=== PATIENT | female | born 1980 | race Two or more races ===

== ENCOUNTER 2017-05-31 16:48 | Emergency (ER) | payer SELFPAY ==
[~2017-05-31] VITALS: Ht 167.6 cm; Wt 63.5 kg
[2017-05-31 17:49] LABS: BILIRUBIN,URINE NEGATIVE (NEG); GLUCOSE,URINE NEGATIVE (NEG); NITRITE,URINE NEGATIVE (NEG); PH,URINE 6.5; PROTEIN,URINE NEGATIVE (NEG-TRACE)
[2017-05-31 17:57] LABS: BACTERIA,URINE 0 /HPF (0-FEW); SQUAMOUS EPITHELIAL CELL,UR MANY /LPF
[2017-05-31 18:03] LABS: BASO # 0.1 x10^3/uL (0.0-0.2); BASO % 1 % (0-3); EOS % 4 % (0-3); HEMATOCRIT 34.4 % (36.0-47.0); HEMOGLOBIN 11.6 g/dL (12.0-15.5); LYMPH # 1.8 x10^3/uL (1.0-4.8); LYMPH % 33 % (24-48); MEAN CORPUSCULAR HEMOGLOBIN 32 pg (25-35); MEAN CORPUSCULAR HGB CONC 34 g/dL (31-37); MEAN CORPUSCULAR VOLUME 94 fL (79-100); MONO % 8 % (0-9); NEUT % 54 % (31-73); PLATELET COUNT 288 x10^3/uL (140-400); RED BLOOD COUNT 3.66 x10^6/uL (3.50-5.40); RED CELL DISTRIBUTION WIDTH 13.3 % (11.5-14.5); WHITE BLOOD COUNT 5.5 x10^3/uL (4.0-11.0)
[2017-05-31 18:19] LABS: CALCIUM 9.2 mg/dL (8.5-10.1); CREATININE 0.6 mg/dL (0.6-1.0); GFR 113.1
--- NOTE | 2017-05-31 19:11 | RAD ---
OB ultrasound less than 14 weeks and transvaginal OB ultrasound HISTORY: Abdominal pain vaginal bleeding and Sonographic examination of the was performed by transabdominal and endovaginal technique. Multiple static images were obtained. OB ultrasound first trimester: The uterus appears normal. There is no gestational sac seen. OB ultrasound transvaginal: The endometrium of the uterus measures 10 mm in thickness. The right ovary appears normal with normal blood flow measures 1.1 x 2.4 x 1.1 cm. The left ovary appears normal with normal blood flow measures 1.4 x 2.7 x 1.8 cm. There is no free fluid. IMPRESSION: No sonographic evidence of . An early less than 4 weeks is possible. Miscarriage or blighted ovum is possible. Recommend correlation with serial quantitative beta-hCG. If the progresses beyond 6 weeks a repeat ultrasound is recommended in order to document an intrauterine and thereby exclude ectopic . Electronically signed by: Titus Villalobos III, MD (05/31/2017 7:06 PM) [facility]
--- NOTE | 2017-05-31 20:28 | PHYS DOC ---
Past Medical History Past Medical History: No Pertinent History Past Surgical History: No Surgical History Alcohol Use: None Drug Use: None Adult General Chief Complaint Chief Complaint: VAGINAL BLEEDING HPI HPI Patient is a 36 year old female who presents with vaginal bleeding in early . The patient is , at 10w2d by dates (LMP 03/21), reports 1 week ago she had vaginal bleeding with clots & cramping lower abdominal pain. She is concerned that she experienced miscarriage. Currently no bleeding or pain. Denies fevers/chills, nausea, vomiting, diarrhea, dysuria/hematuria, vaginal discharge. She went to a clinic this morning & was instructed to come here for further evaluation. Review of Systems Review of Systems Constitutional: Denies fever or chills HENT: Denies nasal congestion or sore throat Respiratory: Denies cough or shortness of breath Cardiovascular: Denies chest pain GI: Reports history of abdominal pain, denies nausea, vomiting : Denies dysuria or hematuria, reports history of vaginal bleeding. Musculoskeletal: Denies back pain or joint pain Integument: Denies rash or skin lesions Neurologic: Denies headache, focal weakness or sensory changes All other systems were reviewed and found to be within normal limits, except as documented in this note. Allergies Allergies Allergies Coded Allergies Type Severity Reaction Last Updated Verified No Known Drug Allergies 05/31/17 No Physical Exam Physical Exam Constitutional: Well developed, well nourished, no acute distress, non-toxic appearance. HENT: Normocephalic, atraumatic, bilateral external ears normal, oropharynx moist, nose normal. Eyes: conjunctiva normal, no discharge. Neck: supple, no stridor. Cardiovascular: RRR, no murmurs, no edema. Lungs & Thorax: LCTAB, no wheezing, no respiratory distress. Abdomen: soft, nontender, nondistended. no masses or pulsatile masses, no rebound/guarding. Skin: Warm, dry, no erythema, no rash. Back: No CVA tenderness. Extremities: No tenderness, no edema. Neurologic: Alert and oriented X 3, no focal deficits noted. Psychologic: Affect normal, judgement normal, mood normal. Current Patient Data Vital Signs Vital Signs Date Time Temp Pulse Resp B/P (MAP) Pulse Ox O2 Delivery O2 Flow Rate FiO2 05/31/17 20:57 78 20 107/54 (71) 98 Room Air 05/31/17 17:30 98.4 98.4 Lab Values Laboratory Tests Test 05/31/17 17:24 05/31/17 17:28 05/31/17 17:51 Urine Collection Type Unknown Urine Color Yellow Urine Clarity Clear Urine pH 6.5 Urine Specific [place] 1.025 Urine Protein Negative mg/dL (NEG-TRACE) Urine Glucose (UA) Negative mg/dL (NEG) Urine Ketones (Stick) Negative mg/dL (NEG) Urine Blood Small (NEG) Urine Nitrite Negative (NEG) Urine Bilirubin Negative (NEG) Urine Urobilinogen Dipstick 1.0 mg/dL (0.2 mg/dL) Urine Leukocyte Esterase Small (NEG) Urine RBC 3-5 /HPF (0-2) Urine WBC 1-4 /HPF (0-4) Urine Squamous Epithelial Cells Many /LPF Urine Amorphous Sediment Present /HPF Urine Bacteria 0 /HPF (0-FEW) Urine Mucus Marked /LPF POC Urine HCG, Qualitative Hcg positive (Negative) White Blood Count 5.5 x10^3/uL (4.0-11.0) Red Blood Count 3.66 x10^6/uL (3.50-5.40) Hemoglobin 11.6 g/dL (12.0-15.5) L Hematocrit 34.4 % (36.0-47.0) L Mean Corpuscular Volume 94 fL (79-100) Mean Corpuscular Hemoglobin 32 pg (25-35) Mean Corpuscular Hemoglobin Concent 34 g/dL (31-37) Red Cell Distribution Width 13.3 % (11.5-14.5) Platelet Count 288 x10^3/uL (140-400) Neutrophils (%) (Auto) 54 % (31-73) Lymphocytes (%) (Auto) 33 % (24-48) Monocytes (%) (Auto) 8 % (0-9) Eosinophils (%) (Auto) 4 % (0-3) H Basophils (%) (Auto) 1 % (0-3) Neutrophils # (Auto) 3.0 x10^3uL (1.8-7.7) Lymphocytes # (Auto) 1.8 x10^3/uL (1.0-4.8) Monocytes # (Auto) 0.4 x10^3/uL (0.0-1.1) Eosinophils # (Auto) 0.2 x10^3/uL (0.0-0.7) Basophils # (Auto) 0.1 x10^3/uL (0.0-0.2) Maternal Serum HCG Beta Subunit 442 mIU/mL (0-5) H Sodium Level 140 mmol/L (136-145) Potassium Level 4.0 mmol/L (3.5-5.1) Chloride Level 105 mmol/L (98-107) Carbon Dioxide Level 29 mmol/L (21-32) Anion Gap 6 (6-14) Blood Urea Nitrogen 14 mg/dL (7-20) Creatinine 0.6 mg/dL (0.6-1.0) Estimated GFR (Cockcroft-Gault) 113.1 Glucose Level 98 mg/dL (70-99) Calcium Level 9.2 mg/dL (8.5-10.1) Laboratory Tests 05/31/17 17:51 Laboratory Tests 05/31/17 17:51 Microbiology 05/31/17 Urine Culture - Preliminary, Resulted 05/31/17 Urine Culture Result 1 (NEETA) - Preliminary, Resulted EKG EKG [] Radiology/Procedures Radiology/Procedures PROCEDURE: OB < 14 WKS OB ultrasound less than 14 weeks and transvaginal OB ultrasound HISTORY: Abdominal pain vaginal bleeding and Sonographic examination of the was performed by transabdominal and endovaginal technique. Multiple static images were obtained. OB ultrasound first trimester: The uterus appears normal. There is no gestational sac seen. OB ultrasound transvaginal: The endometrium of the uterus measures 10 mm in thickness. The right ovary appears normal with normal blood flow measures 1.1 x 2.4 x 1.1 cm. The left ovary appears normal with normal blood flow measures 1.4 x 2.7 x 1.8 cm. There is no free fluid. IMPRESSION: No sonographic evidence of . An early less than 4 weeks is possible. Miscarriage or blighted ovum is possible. Recommend correlation with serial quantitative beta-hCG. If the progresses beyond 6 weeks a repeat ultrasound is recommended in order to document an intrauterine and thereby exclude ectopic . Electronically signed by: Clair Lynn III, MD (05/31/2017 7:06 PM) [facility] DICTATED and SIGNED BY: CLAIR LYNN III, MD DATE: 05/31/171901[] Course & Med Decision Making Course & Med Decision Making Pertinent Labs and Imaging studies reviewed. (See chart for details) The patient presents for evaluation after abdominal pain & vaginal bleeding in first trimester, currently asymptomatic. Vitals stable. Obtained labs, UA, ultrasound. No evidence of IUP. Based on history & LMP, likely consistent with spontaneous , completed, but still possibility of early IUP or ectopic . Discussed with patient, very important to follow up in 2 days for repeat BHCG. May make appointment with Dr. Barrett or OB of her choice if she can be seen quickly. Come back for high fever, severe pain, uncontrolled vomiting, heavy bleeding requiring greater than 1 pad per hour, any otherwise worsening condition. Discharged home in stable condition. [] Dragon Disclaimer Dragon Disclaimer This electronic medical record was generated, in whole or in part, using a voice recognition dictation system. Departure Departure Impression: Primary Impression: Vaginal bleeding affecting early Disposition: HOME, SELF-CARE Condition: STABLE Referrals: UNKNOWN PCP NAME (PCP) CHAR BARRETT Jr, MD Patient Instructions: Vaginal Bleeding During , First Trimester Additional Instructions: You were seen in the emergency department today for vaginal bleeding during . Based on the date severe last period, we would expect a higher hormone level. We will would also expect to be able to see a developing baby on your ultrasound. Based on the symptoms you have last week, it is likely that you had an ultrasound. However there is still a possibility that this could be very early or a developing within your tubes which can be life-threatening. It is very important to follow-up with an OB doctor for further labs and possibly ultrasound evaluation. Please follow-up at the clinic or with Dr. Barrett here at [place] within 2 days. Return to the emergency department for high fever, severe pain, uncontrolled vomiting, heavy bleeding requiring more than 1 pad per hour, any otherwise worsening condition. LUCRETIA VALLADARES MD May 31, 2017 20:28
[2017-05-31 20:57] VITALS: BP 107/54
== END 2017-05-31 20:58 | disposition home or self-care (01) ==
LOC: ER 16:48
DX: O20.9 Hemorrhage in early pregnancy, unspecified (principal); O26.891 Other specified pregnancy related conditions, first trimester; R10.30 Lower abdominal pain, unspecified; Z3A.01 Less than 8 weeks gestation of pregnancy
CPT/HCPCS: 36415; 76801; 80048; 81001; 81025; 84702; 85025; 86850; 86900; 86901; 87086; 99285-25

== ENCOUNTER 2018-04-11 06:00 | Inpatient (IN) | payer SELFPAY ==
[~2018-04-11] VITALS: Ht 167.6 cm; Wt 79.4 kg
[2018-04-11] MEDS ORDERED: TERBUTALINE 1 MG/ML VIAL. SQ PRN (06:15)
[2018-04-11] MEDS ORDERED: AMPICILLIN SODIUM 2 GM in IV NORMAL SALINE 100ML 100 ML IV ONE (06:15)
[2018-04-11] MEDS ORDERED: MAG HYDROX/ALUMINUM HYD/SIMETH 30 ML ORAL.SUSP PO PRN ×2 (06:15→15:00)
[2018-04-11] MEDS ORDERED: ACETAMINOPHEN 325 MG TABLET. PO PRN ×2 (06:15→15:00)
[2018-04-11] MEDS ORDERED: IV RINGERS,LACTATED 1000ML 1,000 ML IV PRN (06:15)
[2018-04-11] MEDS ORDERED: NALBUPHINE 10 MG/ML AMPUL. IV PRN (06:15)
[2018-04-11] MEDS ORDERED: BUTORPHANOL 2 MG/ML VIAL. IV PRN ×2 (06:15)
[2018-04-11] MEDS ORDERED: IBUPROFEN 400 MG TABLET. PO PRN ×2 (06:15→15:00)
[2018-04-11] MEDS ORDERED: OXYTOCIN 30 UNIT/500 ML PREMIX 500 ML IV PRN ×3 (06:15→15:00)
[2018-04-11] MEDS ORDERED: 0.9 % SODIUM CHLORIDE 10 ML DISP.SYRIN. IV PRN ×2 (06:15→15:00)
[2018-04-11 06:30] LABS: BILIRUBIN,URINE NEGATIVE (NEG); CLARITY,URINE CLEAR; COLOR,URINE YELLOW; NITRITE,URINE NEGATIVE (NEG); PH,URINE 5.5; PROTEIN,URINE NEGATIVE (NEG-TRACE); UROBILINOGEN,URINE 0.2 mg/dL (0.2 mg/dL)
[2018-04-11 06:36] LABS: AMPHETAMINE/METHAMPHETAMINE NEG (NEG); BARBITURATES NEG (NEG); BENZODIAZEPINES NEG (NEG); CANNABINOIDS NEG (NEG); COCAINE NEG (NEG); METHADONE NEG (NEG); OPIATES NEG (NEG); PHENCYCLIDINE NEG (NEG)
[2018-04-11 06:38] LABS: BACTERIA,URINE MANY /HPF (0-FEW); RBC,URINE 0 /HPF (0-2); SQUAMOUS EPITHELIAL CELL,UR MANY /LPF
[2018-04-11 06:43] VITALS: BP 110/90
[2018-04-11 08:21] LABS: BASO % 1 % (0-3); EOS # 0.2 x10^3/uL (0.0-0.7); EOS % 3 % (0-3); HEMATOCRIT 33.8 % (36.0-47.0); HEMOGLOBIN 11.7 g/dL (12.0-15.5); LYMPH # 1.5 x10^3/uL (1.0-4.8); LYMPH % 26 % (24-48); MEAN CORPUSCULAR HEMOGLOBIN 35 pg (25-35); MEAN CORPUSCULAR HGB CONC 35 g/dL (31-37); MEAN CORPUSCULAR VOLUME 101 fL (79-100); MONO # 0.5 x10^3/uL (0.0-1.1); MONO % 9 % (0-9); NEUT # 3.7 x10^3uL (1.8-7.7); NEUT % 62 % (31-73); PLATELET COUNT 174 x10^3/uL (140-400); RED BLOOD COUNT 3.36 x10^6/uL (3.50-5.40); RED CELL DISTRIBUTION WIDTH 13.1 % (11.5-14.5); WHITE BLOOD COUNT 5.9 x10^3/uL (4.0-11.0)
[2018-04-11] MEDS ORDERED: AMPICILLIN SODIUM 1 GM in IV NORMAL SALINE 50ML 50 ML IV SCH (10:00)
[2018-04-11] MEDS: fentaNYL PF VIAL 100 MCG/2 ML VIAL IV PRN ×2 (12:56→16:31)
--- NOTE | 2018-04-11 14:55 | PDOC ---
VAGINAL DELIVERY DATE DATE: 04/11/18 TIME: 14:54 : 5 Para: 4 EDC: Apr 11, 2018 VAGINAL DELIVERY: VTX VACCUM ASSISTED: No PLACENTA: Spontaneous SEX: Female WEIGHT Weight [ ] Nuchal Cord: No Amniotic Fluid: Clear PAIN: Natural EPISIOTOMY: No EXTENSION: No EBL 300cc COMPLICATIONS none CONDITION Stable Signs of Intrauterine Infectio: None Shoulder Dystocia: No DIAGNOSIS JOSE RAMON Fry MD Apr 11, 2018 14:55
[2018-04-11] MEDS ORDERED: HYDROCORTISONE 1% TOPICAL OINTMENT 30GM TUBE. TP PRN (15:00)
[2018-04-11] MEDS ORDERED: BENZOCAINE 20% TOPICAL AEROSOL SPRAY 57GM CAN. TP PRN (15:00)
[2018-04-11] MEDS ORDERED: MAGNESIUM HYDROXIDE 2,400 MG/30 ML ORAL.SUSP. PO PRN (15:00)
[2018-04-11] MEDS ORDERED: ZOLPIDEM 5 MG TABLET. PO PRN (15:00)
[2018-04-11] MEDS ORDERED: PHENYLEPH/MINERAL OIL/PETROLAT RECTAL OINTMENT 28GM TUBE. RC PRN (15:00)
[2018-04-11] MEDS ORDERED: diphenhydrAMINE HCL 25 MG CAPSULE PO PRN (15:00)
[2018-04-11] MEDS ORDERED: SIMETHICONE 80 MG TAB.CHEW PO PRN (15:00)
[2018-04-11] MEDS ORDERED: IBUPROFEN 800 MG TABLET. PO PRN (15:08)
[2018-04-11] MEDS ORDERED: CARBOPROST TROMETHAMINE 250 MCG/ML AMPUL IM ONE ×2 (15:45→15:50)
[2018-04-11] MEDS: LIDOCAINE 1% PF 30 ML VIAL. INJ PRN ×2 (16:31→16:32)
[2018-04-11] MEDS: IBUPROFEN 800 MG TABLET. PO PRN (16:31)
[2018-04-11] MEDS ORDERED: LIDOCAINE 2% JELLY 6ML IN APPLICATOR. MM ONE (16:45)
[2018-04-11] MEDS ORDERED: FERROUS SULFATE 325 MG TABLET. PO SCH (17:00)
[2018-04-11] MEDS ORDERED: oxyCODONE/APAP 5/325 1 TAB TABLET PO PRN (18:15)
[2018-04-11 19:45] VITALS: BP 112/76
[2018-04-11 20:45] VITALS: BP 111/76
[2018-04-11 23:27] VITALS: BP 116/77
[2018-04-12] VITALS (9 sets, daily range): BP systolic 104–120; BP diastolic 64–80
[2018-04-12] MEDS: IBUPROFEN 800 MG TABLET. PO PRN ×2 (00:28→18:22)
[2018-04-12] MEDS ORDERED: PROCHLORPERAZINE 10 MG/2 ML VIAL. IV PRN (07:00)
[2018-04-12] MEDS ORDERED: HYDROmorphone 2 MG/ML VIAL IV PRN (07:00)
[2018-04-12] MEDS ORDERED: ONDANSETRON PF 4 MG/2 ML VIAL. IV PRN (07:00)
[2018-04-12] MEDS ORDERED: LIDOCAINE 1% PF 2 ML VIAL. ID PRN (07:00)
[2018-04-12] MEDS ORDERED: fentaNYL PF VIAL 100 MCG/2 ML VIAL IV PRN (07:00)
[2018-04-12] MEDS ORDERED: MORPHINE SULFATE 2 MG/ML VIAL. IV PRN (07:00)
[2018-04-12] MEDS ORDERED: FAMOTIDINE 20 MG/2 ML VIAL ONE (07:13)
[2018-04-12] MEDS ORDERED: ONDANSETRON PF 4 MG/2 ML VIAL. ONE (07:13)
[2018-04-12] MEDS ORDERED: PROPOFOL 20 ML IV ONE ×2 (07:13→09:58)
[2018-04-12] MEDS ORDERED: DEXAMETHASONE SOD PHOS 20 MG/5 ML VIAL. ONE (07:13)
[2018-04-12] MEDS ORDERED: MIDAZOLAM HCL/PF 2 MG/2 ML VIAL. ONE ×2 (07:15→08:18)
[2018-04-12] MEDS ORDERED: fentaNYL PF VIAL 100 MCG/2 ML VIAL ONE ×3 (07:15→10:15)
[2018-04-12] MEDS ORDERED: ROCURONIUM 50 MG/5 ML VIAL. ONE ×2 (07:15→08:18)
[2018-04-12] MEDS ORDERED: SUCCINYLCHOLINE 200 MG/10 ML VIAL. ONE (08:19)
[2018-04-12] MEDS ORDERED: BUPIVAC MPF-EPI 0.5%-1:200000 30 ML VIAL. ONE (08:32)
[2018-04-12] MEDS: IV RINGERS,LACTATED 1000ML 1,000 ML IV SCH ×2 (08:55→11:10)
[2018-04-12] MEDS ORDERED: KETOROLAC 30 MG/ML INJ FOR OR. INJ ONE (10:19)
[2018-04-12] MEDS: fentaNYL PF VIAL 100 MCG/2 ML VIAL IV PRN ×2 (10:58→11:11)
[2018-04-12] MEDS: BENZOCAINE/MENTHOL LOZENGE. PO PRN (19:34)
[2018-04-13 06:11] VITALS: BP 116/69
[2018-04-13] MEDS: BENZOCAINE/MENTHOL LOZENGE. PO PRN ×2 (08:17→12:07)
[2018-04-13] MEDS: IBUPROFEN 800 MG TABLET. PO PRN (08:17)
[2018-04-13 08:18] VITALS: BP 114/73
--- NOTE | 2018-04-13 10:25 | PDOC3 ---
OB DISCHARGE SUMMARY DATE OF ADMISSION: 04/11/18 DATE OF DISCHARGE: 04/13/18 REASON FOR ADMISSION: Induction of labor PROCEDURES: Ultrasound INTRAPARTUM PROCEDURES: Tubal Ligation, Vaginal Laceration PROCEDURES: None OPERATIONS: None DISCHARGE DIAGNOSIS: Term Delivered DISCHARGE INFORMATION: Activity, Diet HOSPITAL COURSE Unremarkable CONDITION AT DISCHARGE Stable JOSE RAMON TERESA MD Apr 13, 2018 10:24
[2018-04-13] MEDS ORDERED: NAPR-683 PO (10:26)
[2018-04-13] MEDS ORDERED: OXYC-323 PO (10:26)
[2018-04-13 12:38] VITALS: BP 112/76
--- NOTE | 2018-04-13 19:08 | PATHOLOGY ---
[facility] Accession Number: [id number] . 01 Material submitted: . PART A: RIGHT FALLOPIAN TUBE PART B: LEFT FALLOPIAN TUBE . 01 Clinician provided ICD-10: Z30.2 . 01 Clinical history: . tubal ligation . 02 Diagnosis: A. Right tubal ligation: - Segment of fallopian tube confirmed. . B. Left tubal ligation: - Segment of fallopian tube confirmed. . (JPM:raj; 04/13/2018) MBR/04/13/2018 . 02 Electronically signed: . David Jordan MD, Pathologist NPI- [id number] . 01 Gross description: . A. The specimen is received in formalin, labeled "Tommy, Kay, right fallopian tube" and consists of a pink-rahman and smooth non-fimbriated segment of fallopian tube measuring 1.4 x 0.8 x 0.5 cm. Sectioning reveals a central lumen and no gross lesions. The specimen is entirely submitted in A1. . B. The specimen is received in formalin, labeled "Tommy, Kay, left fallopian tube" and consists of a pink-rahman and smooth non-fimbriated segment of fallopian tube measuring 2.3 x 0.8 x 0.5 cm. Sectioning reveals a central lumen and no gross lesions. [employer] sections are submitted in B1. (MIGUEY; 04/12/2018) SYU/SYU . 02 Pathologist provided ICD-10: Z30.2 . 02 CPT . 237371, 303950 Specimen Comment: A courtesy copy of this report has been sent to Specimen Comment: [phone]. Specimen Comment: Report sent to Performed at: [address] [place], [place] [id number] [facility] [address], [place], [place] [id number] MD Yovany Sanchez MD Phone: [phone] Performed at: [address] [id number] MD David Jordan MD Phone: [phone]
== END 2018-04-13 13:05 | disposition home or self-care (01) | DRG 798 ==
LOC: 3 SO LND 06:00 → 3 NORTH 19:36
PROVIDERS: ADMIT Specialist; ATTEND Specialist
PROC: 10E0XZZ Delivery of Products of Conception, External Approach (ICD-10-PCS; principal; 2018-04-11)
PROC: 0UB70ZZ Excision of Bilateral Fallopian Tubes, Open Approach (ICD-10-PCS; 2018-04-11)
PROC: 0UQGXZZ Repair Vagina, External Approach (ICD-10-PCS; 2018-04-11)
PROC: 10907ZC Drainage of Amniotic Fluid, Therapeutic from Products of Conception, Via Natural or Artificial Opening (ICD-10-PCS; 2018-04-11)
PROC: 3E0P7VZ Introduction of Hormone into Female Reproductive, Via Natural or Artificial Opening (ICD-10-PCS; 2018-04-11)
PROC: 3E033VJ Introduction of Other Hormone into Peripheral Vein, Percutaneous Approach (ICD-10-PCS; 2018-04-11)
DX: O71.4 Obstetric high vaginal laceration alone (principal); Z37.0 Single live birth; Z3A.40 40 weeks gestation of pregnancy; Z30.2 Encounter for sterilization
CPT/HCPCS: 36415; 80307; 81001; 85014; 85025; 86592; 86850; 86900; 86901; 87086; 88302; 90471; 90756; J0290; J0330; J0780; J1100; J1885; J2250; J2405; J2590; J2704; J3010; J3490; J7120; S0028; G0479; Q2035